=== PATIENT | female | born 1950 ===

== ENCOUNTER → 2023-02-13 | Outpatient (CLI) | payer MEDICARE ==
[2023-02-13 19:03] LABS: BASOPHILS ABSOLUTE AUTO 0.09 K/mm3 (0.00-0.23); BASOPHILS PERCENT AUTO 2 % (0-2); EOSINOPHILS PERCENT AUTO 2 % (0-6); Hematocrit 39.6 % (33.0-51.0); Hemoglobin 12.7 g/dL (11.5-16.0); IMMATURE GRAN ABSOLUTE AUTO 0.02 K/mm3 (0.00-0.10); IMMATURE GRAN PERCENT AUTO 0 % (0-1); LYMPHOCYTES ABSOLUTE AUTO 1.93 K/mm3 (0.84-5.20); LYMPHOCYTES PERCENT AUTO 32 % (21-46); MONOCYTES ABSOLUTE AUTO 0.41 K/mm3 (0.16-1.47); MONOCYTES PERCENT AUTO 7 % (4-13); Mean Corpuscular HGB 27.4 pg (26.0-34.0); Mean Corpuscular HGB Conc 32.1 g/dL (31.5-36.5); Mean Corpuscular Volume 86 fL (80-100); Mean Platelet Volume 9.8 fL (9.1-12.4); NEUTROPHILS ABSOLUTE AUTO 3.55 K/mm3 (1.96-9.15); NEUTROPHILS PERCENT AUTO 58 % (41-73); Platelet Count 367 K/mm3 (150-400); RDW Coefficient Variation 13.5 % (11.7-14.2); RDW Standard Deviation 41.8 fL (35.1-46.3); Red Blood Cell Count 4.63 M/mm3 (3.80-5.20)
[2023-02-13 19:37] LABS: Free Thyroxine 1.28 ng/dL (0.70-1.60)
[2023-02-13 19:44] LABS: Albumin, Blood 3.9 g/dL (3.4-5.0); Albumin/Globulin Ratio 1.2 (0.8-1.8); Bilirubin, Total 0.5 mg/dL (0.1-1.0); Bun/Creatinine Ratio 33.7 (12.0-20.0); Creatinine, Blood 0.62 mg/dL (0.40-1.00); Globulin, Blood 3.3 g/dL (2.2-4.0); Potassium, Blood 3.8 mmol/L (3.5-5.5); Thyroid Stimulating Hormone 3.13 uIU/mL (0.360-4.800); Total Protein, Blood 7.2 g/dL (6.4-8.2)
== END | disposition home or self-care (01) ==
LOC: LAB SHORT 15:50 → LAB 15:50
PROVIDERS: Nurse Practitioner Family
DX: E03.9 Hypothyroidism, unspecified (principal)
CPT/HCPCS: 80053; 84439; 84443; 85025

== ENCOUNTER 2025-03-02 10:27 | Inpatient (IN) | payer MEDICARE ==
[~2025-03-02] VITALS: Ht 160 cm; Wt 63.5 kg
[~2025-03-02 10:27] MED LIST: CENTRUM SILVER1 EAC2 PO; DIAZ5 PO; LEVSOD150 PO; MECL12.5 PO; SYNTHROID125 MC1 PO; TRAZ100 PO
[2025-03-02 11:39] LABS: BASOPHILS ABSOLUTE AUTO 0.09 K/mm3 (0.00-0.23); BASOPHILS PERCENT AUTO 1 % (0-2); EOSINOPHILS ABSOLUTE AUTO 0.02 K/mm3 (0.00-0.68); EOSINOPHILS PERCENT AUTO 0 % (0-6); Hematocrit 38.2 % (33.0-51.0); Hemoglobin 12.2 g/dL (11.5-16.0); IMMATURE GRAN ABSOLUTE AUTO 0.02 K/mm3 (0.00-0.10); IMMATURE GRAN PERCENT AUTO 0 % (0-1); LYMPHOCYTES ABSOLUTE AUTO 1.46 K/mm3 (0.84-5.20); LYMPHOCYTES PERCENT AUTO 18 % (21-46); MONOCYTES ABSOLUTE AUTO 0.48 K/mm3 (0.16-1.47); MONOCYTES PERCENT AUTO 6 % (4-13); Mean Corpuscular HGB Conc 31.9 g/dL (31.5-36.5); Mean Corpuscular Volume 88 fL (80-100); NEUTROPHILS ABSOLUTE AUTO 6.05 K/mm3 (1.96-9.15); NEUTROPHILS PERCENT AUTO 75 % (41-73); NRBC ABSOLUTE 0.00 K/mm3 (0.00-0.02); NRBC Auto 0.0 /100 WBC (0.0-0.2); Platelet Count 397 K/mm3 (150-400); RDW Coefficient Variation 14.5 % (11.7-14.2); RDW Standard Deviation 46.8 fL (35.1-46.3)
[2025-03-02 12:03] LABS: Alanine Aminotransfer (ALT/SGP 31.0 U/L (12-78); Albumin, Blood 4.1 g/dL (3.4-5.0); Albumin/Globulin Ratio 1.2 (0.8-1.8); Anion Gap 9.0 mmol/L (3-11); Aspartate Aminotrans (AST/SGOT 33.0 U/L (12-37); Bilirubin, Total 0.7 mg/dL (0.1-1.0); Blood Urea Nitrogen 20.0 mg/dL (8-24); CO2, Blood 29.0 mmol/L (21-32); Calcium, Blood 8.7 mg/dL (8.5-10.1); Chloride, Blood 104.0 mmol/L (98-108); Creatinine, Blood 0.66 mg/dL (0.40-1.00); Ethanol (Alcohol), Blood, Med 3.0 mg/dL; Globulin, Blood 3.3 g/dL (2.2-4.0); Glucose, Blood 125.0 mg/dL (70-99); Potassium, Blood 3.7 mmol/L (3.5-5.5); Sodium, Blood 138.0 mmol/L (136-145); Total Protein, Blood 7.4 g/dL (6.4-8.2)
[2025-03-02] MEDS ORDERED: NS 1,000 ML IV SCH ×2 (13:35→19:00)
[2025-03-02] MEDS ORDERED: Haloperidol Lactate Inj. 5 MG/ML Injection IV ONE ×4 (13:35→15:35)
[2025-03-02 13:47] LABS: Source, Urine Fem Cath
[2025-03-02 13:48] LABS: pH Blood Venous 7.42 (7.34-7.37)
[2025-03-02 13:58] LABS: Bilirubin, Urine Neg (Neg); Color, Urine Yellow (P-Yellow); Glucose Qualitative, Urine Neg (Neg); Ketones, Urine 4+ (Neg); Leukocyte Esterase, Urine Neg (Neg); Protein, Urine 2+ (Neg); Specific Gravity, Urine 1.030 (1.003-1.022); Urobilinogen, Urine NORM (Normal)
[2025-03-02 14:13] LABS: U Amphetamine Screen Not Detected; U Barbituate Screen Not Detected; U Benzodiazapine Screen DETECTED; U Buprenorphine Screen Not Detected; U Cannabinoids Screen Not Detected; U Cocaine Screen Not Detected; U Methadone Screen Not Detected; U Methamphetamine Screen Not Detected; U Opiates Screen Not Detected; U Oxycodone Screen Not Detected; U Phencyclidine Screen Not Detected
[2025-03-02 14:22] LABS: Red Blood Cells, Urine 0-2 /hpf (0-2); White Blood Cells, Urine 0-2 /hpf (0-5)
[2025-03-02] MEDS ORDERED: Diazepam 5 MG / ML 2ML SYR IV ONE (15:30)
[2025-03-02] MEDS ORDERED: Haloperidol Lactate Inj. 5 MG/ML Injection IV PRN (15:45)
[2025-03-02 16:15] LABS: Magnesium, Blood 2.0 mg/dL (1.6-2.4)
[2025-03-02 16:17] LABS: Phosphorus, Blood 3.1 mg/dL (2.5-4.9); Thyroid Stimulating Hormone 6.04 uIU/mL (0.360-4.800)
[2025-03-02 16:41] LABS: Osmolality, Serum 303.0 mos/KG (275-300)
[2025-03-02 17:55] VITALS: BP 133/64
[2025-03-02 19:44] VITALS: BP 111/58
--- NOTE | 2025-03-03 03:47 | NUR ---
PT ADMITTED FROM ED WITH AMS, A&O X4 CURRENTLY, VS WNL, PO INTAKE WNL, VOIDING WITHOUT C/O OF DISCOMFORT. PT STEADY ON FEET, AND LOW RISK FOR FALLS. PT REMAINS ON IVF, AND RA, SCD'S LEFT OFF D/T IRRITATION WITH EQUIPMENT. HOME MED REGIEME RESTARTED. WILL ASSESS LABS IN AM.
[2025-03-03 04:41] VITALS: BP 110/56
[2025-03-03] MEDS ORDERED: Levothyroxine Sodium 0.15 MG Tab PO SCH (06:00)
[2025-03-03 06:58] VITALS: BP 123/64
[2025-03-03 08:27] LABS: BASOPHILS ABSOLUTE AUTO 0.05 K/mm3 (0.00-0.23); BASOPHILS PERCENT AUTO 1 % (0-2); EOSINOPHILS ABSOLUTE AUTO 0.05 K/mm3 (0.00-0.68); EOSINOPHILS PERCENT AUTO 1 % (0-6); Hematocrit 34.3 % (33.0-51.0); Hemoglobin 10.9 g/dL (11.5-16.0); IMMATURE GRAN ABSOLUTE AUTO 0.00 K/mm3 (0.00-0.10); IMMATURE GRAN PERCENT AUTO 0 % (0-1); LYMPHOCYTES ABSOLUTE AUTO 1.30 K/mm3 (0.84-5.20); LYMPHOCYTES PERCENT AUTO 27 % (21-46); MONOCYTES ABSOLUTE AUTO 0.49 K/mm3 (0.16-1.47); MONOCYTES PERCENT AUTO 10 % (4-13); Mean Corpuscular HGB Conc 31.8 g/dL (31.5-36.5); Mean Corpuscular Volume 90 fL (80-100); NEUTROPHILS ABSOLUTE AUTO 2.91 K/mm3 (1.96-9.15); NEUTROPHILS PERCENT AUTO 61 % (41-73); NRBC ABSOLUTE 0.00 K/mm3 (0.00-0.02); NRBC Auto 0.0 /100 WBC (0.0-0.2); Platelet Count 323 K/mm3 (150-400); RDW Coefficient Variation 14.6 % (11.7-14.2); RDW Standard Deviation 48.0 fL (35.1-46.3)
[2025-03-03 08:46] LABS: Alanine Aminotransfer (ALT/SGP 27.0 U/L (12-78); Albumin, Blood 3.4 g/dL (3.4-5.0); Albumin/Globulin Ratio 1.1 (0.8-1.8); Anion Gap 5.0 mmol/L (3-11); Aspartate Aminotrans (AST/SGOT 30.0 U/L (12-37); Bilirubin, Total 0.8 mg/dL (0.1-1.0); Blood Urea Nitrogen 16.0 mg/dL (8-24); CO2, Blood 30.0 mmol/L (21-32); Calcium, Blood 8.0 mg/dL (8.5-10.1); Chloride, Blood 109.0 mmol/L (98-108); Creatinine, Blood 0.61 mg/dL (0.40-1.00); Globulin, Blood 3.0 g/dL (2.2-4.0); Glucose, Blood 89.0 mg/dL (70-99); Potassium, Blood 3.4 mmol/L (3.5-5.5); Sodium, Blood 141.0 mmol/L (136-145); Total Protein, Blood 6.4 g/dL (6.4-8.2)
[2025-03-03] MEDS ORDERED: Enoxaparin 40 MG/0.4 ML SYR SC SCH (09:00)
[2025-03-03] MEDS ORDERED: NS 1,000 ML IV SCH (09:40)
[2025-03-03] MEDS ORDERED: Potassium Chloride 10 Meq Tablet SA PO ONE (12:30)
[2025-03-03] MEDS ORDERED: Haloperidol Lactate Inj. 5 MG/ML Injection IV PRN (13:30)
[2025-03-03] MEDS ORDERED: Potassium Chl 10MEQ/Water100ML 100 ML IV ONE (13:30)
--- NOTE | 2025-03-03 17:12 | NUR ---
PATIENT IN THE AM WAS HUNCHED OVER IN BED ROCKING. PATIENT WOULD REPEAT CERTAIN WORDS THAT WERE SPOKEN IN THE ROOM, WHEN ASKED TO TAKE MEDICATION THE PATIENT STATED NO SEVERAL TIMES. SPOUSE AND SISTER IN AND OUT OF ROOM TODAY. PATIENT ABLE TO RELAX AND REST. DR PAT EVALUATED PATIENT AND PLACED ORDERS FOR MEDICATION TO HELP PATIENT SLEEP. PATIENT MORE AWAKE AFTER NAP AND ABLE TO AMBULATE TO BATHROOM AND DO SELF CARE. CALL LIGHT WITHIN REACH AND FAMILY ABLE TO ASK FOR ASSISTANCE.
[2025-03-03 19:41] VITALS: BP 181/78
[2025-03-04 00:12] VITALS: BP 155/81
--- NOTE | 2025-03-04 04:20 | NUR ---
PT A&OO X1, DELUSIONAL THROUGHOUT NIGHT, SLEPT SOME BETWEEN [id number], PT AGITATED EARLY IN SHIFT, GIVEN HALDOL IVP, SISTER WAS ABLE TO GIVE PO MEDS AT HS. B/P ELEVATED WHEN AGITATED, DECREASED WHEN ASLEEP. PT AWOKE AT 0415 AND WAS UP WITH ASSIST TO BR WHERE SHE VOIDED. NO C/O PAIN, VERY CONFUSED AND NEEDED SIMPLE INSTRUCTIONS TO COMPLETE TASK. CONTINUES ON IVF, UNSURE WHAT PLAN IS FOR D/C TO HOME WITH .
[2025-03-04 05:06] VITALS: BP 156/71
[2025-03-04] MEDS ORDERED: LORazepam 2 MG/ML 1ML Injection IV PRN (08:15)
[2025-03-04 15:23] VITALS: BP 156/74
--- NOTE | 2025-03-04 16:55 | NUR ---
SHIFT SUMMARY: A&Ox3-4 THIS SHIFT. PLEASANT AND COOPERATIVE WITH CARE PROVIDED BY STAFF. SPOUSE IN AND OUT OF ROOM VISITING PT THROUGHOUT DAY. PT UP OUT OF BED THIS EVENING WITH A 2P ASSIST TO THE BSC. MEDICATED PER EMAR. BED IN THE LOWEST POSITION. CALL LT WITHIN REACH.
[2025-03-04 19:13] VITALS: BP 138/63
[2025-03-04 23:44] VITALS: BP 122/66
--- NOTE | 2025-03-05 03:35 | NUR ---
PT TRANSFERED TO THE FLOOR DURING SHIFT FROM ICU. PATIENT ALERT TO SELF. PATIENT DOES NOT SPEAK [place], CONSTRUCTION IRONWORKER HELPER PHONE AT BEDSIDE; SON ALSO AT BEDSIDE. PATIENT WAS ON ROOM AIR BUT HAD TWO EPISODES WHILE HE WAS SLEEPING WHERE HIS HR WENT UP TO 120-130'S AND OXYGEN DROPPED TO THE 77%. PATIENT ALSO HAD SOME LOW BLOOD PRESSURES (SEE CHART). DR. LANG WAS NOTIFIED OF BLOOD PRESSURES,HEART AND OXYGEN. PATIENT WAS PUT ON 2 L NC-PATIENT NOW SATING WELL, 93%-97%, AND WAS STARTED ON 5 MG OF MIDODRINE. OCHOA WAS REMOVED PER PROTOCOL. PATIENT NPO. BED ALARM IS ON, BED IN LOW POSITION, WHEELS LOCKED- CALL LIGHT WITHIN REACH.
[2025-03-05 04:12] VITALS: BP 147/71
--- NOTE | 2025-03-05 04:39 | NUR ---
PATIENT WAS ALERT AND ORIENTED 2-3. ABLE TO ANSWER MOST QUESTION BUT PRESENTED WITH INTERMITTENT CONFUSION. PATIENT ON TELE. UP TO BATH ROOM WITH 2 ASSIST AND WALKER. MEDICATION PER EMAR. PATIENT ON IV FLUIDS. BED IS IN LOW POSITION WITH WHEEL LOCKES. BED ALARM ON, CALL LIGHT WITHIN REACH
[2025-03-05 07:22] VITALS: BP 196/97
[2025-03-05 12:06] VITALS: BP 175/71
[2025-03-05 16:39] VITALS: BP 132/65
--- NOTE | 2025-03-05 18:27 | NUR ---
Pt is in bed brushing hair and wants to wait to eat dinner until spouse comes back. Rounded and has no needs at this time. Cleaned room and brought fresh ice water. The bed alarm is on and call light within reach.
[2025-03-05 19:13] VITALS: BP 149/78
--- NOTE | 2025-03-05 19:40 | NUR ---
SHIFT SUMMARY PATIENT ALERT AND INTERACTIVE. PATIENT HAVING PERIODS OF RIGIDITY AND REPETATIVE SPEAKING. PATIENT ABLE TO WALK IN THE HALLS WITH AND WALKER WITH SHUFFLING GAIT. WHEN ABLE TO INTERACT, PATIENT EATING AND DRINKING. PATIENT CONTINUES TO BE RELUCTANT TO TAKE MEDICATIONS. IV PULLED OUT DURING EPISODE OF DELERIUM.
[2025-03-06 02:11] VITALS: BP 153/59
--- NOTE | 2025-03-06 03:32 | NUR ---
BOX SPRING UPHOLSTERER SUMMARY VSS. DX ACUTE METABOLIC ENCEPHALOPATHY. MOOD AND BEHAVIOR ALTERNATING, WITH SOMETIMES CHEERFUL AND COMPLIANAT, OTHER TIMES NOT. OCCASIONAL POUNDING ON BEDSIDE TABLE FOR ATTENTION. MED TELE ONE RUN OF V TACH WHEN SHE WAS ON BEDSIDE COMMODE, OTHERWISE, NO NOTED DISRUPTION. TOLERATING MEDS WITH ENCOURAGEMENT. HAS BEEN RESTING WITH FEW INTERRUPIONS SINCE VOIDING EARLIER. CALL LIGHT IN REACH, RAILS UP X 2 AND BED IN LOW POSITION FOR SAFETY. WILL CONTINUE TO MONITOR.
[2025-03-06 07:31] VITALS: BP 142/71
--- NOTE | 2025-03-06 15:22 | NUR ---
SHIFT SUMMARY PATIENT ABLE TO WALK WITH IN HALLWAY. ORIENTED X3-4 MOST OF SHIFT. ACCEPTING OF MEDICATIONS. EATING AND DRINKING WELL. VOIDING ADEQUATELY, NO BM. TELE IN PLACE, NO ALERT CALLS AT TIME OF NOTE. ABLE TO MAKE NEEDS KNOWN. CALL LIGHT IN REACH.
[2025-03-06 16:10] VITALS: BP 146/71
[2025-03-06 19:43] VITALS: BP 156/89
[2025-03-07 00:02] VITALS: BP 140/71
--- NOTE | 2025-03-07 03:21 | NUR ---
continued to pull off tele leads, refused to allow leads kept on. Med tele was sinus rhythm in the 80's with no noted anomalies in the past 12 hrs or so. MD notified and tele discontinued.
--- NOTE | 2025-03-07 03:23 | NUR ---
CASING BUILDER SUMMARY VSS. SOME INTERMITTENT MOOD SWINGS. WAS AT BEDSIDE UNTIL HS AND WENT HOME. PT SEEMED ANXIOUS AND REQUESTED STAFF TO CALL BACK IN, AND HE CAME IN TO SEE HER, THEN LEFT SHE WENT BACK TO SLEEP. SOON AFTEWARDS, PT BECAME ANXIOUS, RESTLESS AND STARTED TO PULL OFF TELE LEADS AND CONTINUED TO DO SO WHEN STAFF REPLACED THEM. REFUSED TO COMPLY WITH TREATMENT. CALLING OUT AND MUMBLING. CHARGE NURSE NOTIFIED, WAS NOTIFIFED AND SINCE PT HAD BEEN SR IN THE 'S, TELE WAS DC'D. RAILS UP X 3, CALL LIGHT IN REACH, BED IN LOW POSITION AND BED ALARM ON FOR SAFETY. WILL CONTINUE TO MONITOR.
--- NOTE | 2025-03-07 06:45 | NUR ---
NOTIFIED OF PT BEHAVIOR. PT REFUSING TO ALLOW VITAL SIGNS, MEDS, ETC. CAME IN TO SIT WITH PT. EVENTUALLY PT ACCEPTED AM MEDS. SITTING QUIETLY WITH . CALL LIGHT IN REACH.
--- NOTE | 2025-03-07 06:47 | NUR ---
PT TOOK ABOUT 2/3 OF LEVOTHRYOXINE PILL 150 MCG (0.15 MG).
[2025-03-07 08:16] VITALS: BP 140/68
--- NOTE | 2025-03-07 11:11 | NUR ---
CONTACTED DR BURDICK REGARDING PATIENT CHANGE. PATIENT PRESENTING WITH ECHOLALIA, HOLDING ONE POSITION IN BED FOR LONG PERIODS, NOT RECOGNIZING STAFF. WAS A/O X4 THIS AM UNTIL AFTER BREAKFAST. ATIVAN PO GIVEN WITH CONSIDERABLE EFFORT, IV NOT AVAILABLE. DR BURDICK AND NURSE SPOKE WITH JALEN REGARDING MRI, AGREED TO TEST AND TO GIVING IV MEDICATIONS FOR CLAUSTROPHOBIA.
[2025-03-07] MEDS ORDERED: Diazepam 5 MG / ML 2ML SYR IV PRN (12:45)
[2025-03-07 13:18] LABS: BASOPHILS ABSOLUTE AUTO 0.05 K/mm3 (0.00-0.23); BASOPHILS PERCENT AUTO 1 % (0-2); EOSINOPHILS ABSOLUTE AUTO 0.01 K/mm3 (0.00-0.68); EOSINOPHILS PERCENT AUTO 0 % (0-6); Hematocrit 33.7 % (33.0-51.0); Hemoglobin 11.0 g/dL (11.5-16.0); IMMATURE GRAN ABSOLUTE AUTO 0.03 K/mm3 (0.00-0.10); IMMATURE GRAN PERCENT AUTO 0 % (0-1); LYMPHOCYTES ABSOLUTE AUTO 1.20 K/mm3 (0.84-5.20); LYMPHOCYTES PERCENT AUTO 15 % (21-46); MONOCYTES ABSOLUTE AUTO 0.76 K/mm3 (0.16-1.47); MONOCYTES PERCENT AUTO 9 % (4-13); Mean Corpuscular HGB Conc 32.6 g/dL (31.5-36.5); Mean Corpuscular Volume 87 fL (80-100); NEUTROPHILS ABSOLUTE AUTO 6.22 K/mm3 (1.96-9.15); NEUTROPHILS PERCENT AUTO 75 % (41-73); NRBC ABSOLUTE 0.00 K/mm3 (0.00-0.02); NRBC Auto 0.0 /100 WBC (0.0-0.2); Platelet Count 292 K/mm3 (150-400); RDW Coefficient Variation 14.1 % (11.7-14.2); RDW Standard Deviation 43.8 fL (35.1-46.3)
[2025-03-07 13:42] LABS: Magnesium, Blood 1.5 mg/dL (1.6-2.4)
[2025-03-07 13:48] LABS: Alanine Aminotransfer (ALT/SGP 30.0 U/L (12-78); Albumin, Blood 3.3 g/dL (3.4-5.0); Albumin/Globulin Ratio 1.2 (0.8-1.8); Anion Gap 10.0 mmol/L (3-11); Aspartate Aminotrans (AST/SGOT 42.0 U/L (12-37); Bilirubin, Total 0.9 mg/dL (0.1-1.0); Blood Urea Nitrogen 5.0 mg/dL (8-24); CO2, Blood 32.0 mmol/L (21-32); Calcium, Blood 8.6 mg/dL (8.5-10.1); Chloride, Blood 99.0 mmol/L (98-108); Creatinine, Blood 0.57 mg/dL (0.40-1.00); Globulin, Blood 2.7 g/dL (2.2-4.0); Glucose, Blood 100.0 mg/dL (70-99); Phosphorus, Blood 2.5 mg/dL (2.5-4.9); Potassium, Blood 2.3 mmol/L (3.5-5.5); Sodium, Blood 139.0 mmol/L (136-145); Total Protein, Blood 6.0 g/dL (6.4-8.2)
--- NOTE | 2025-03-07 14:02 | NUR ---
CRITICAL NOTIFICATION K 2.3, DR BURDICK MADE AWARE, STATED HE WILL PLACE ORDERS
[2025-03-07] MEDS ORDERED: Magnesium Sulf 2 GM/Water 50ML 50 ML IV STA (14:05)
[2025-03-07 16:41] VITALS: BP 153/76
--- NOTE | 2025-03-07 17:11 | NUR ---
SHIFT SUMMARY PATIENT A/O X3-4 MOST OF SHIFT, A FEW HOURS OF CONFUSION/PSYCHOTIC BEHAVIORS, SEE PREVIOUS NOTE. ALLOWED MRI. 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 REPLACING MAG AND K, CRITICAL VALUE REPORTED TO DR BURDICK. VISITING IN ROOM MOST OF SHIFT, APPEARS SUPPORTIVE. CALL LIGHT IN REACH, BED ALARMED.
[2025-03-07] MEDS ORDERED: Potassium Chl 20MEQ/Water100ML 100 ML IV ONE (18:00)
[2025-03-07] MEDS ORDERED: NS 250 ML IV PRN (21:00)
--- NOTE | 2025-03-08 03:22 | NUR ---
GAS BRAZER SUMMARY PT'S VSS, EXCEPT ELEVATED BP. PER EMAR, PT REFUSED AMLODIPINE DURING AM SHIFT. PT CONTINUES TO BE CONFUSED, ANXIOUS, AND STUTTERING. PT WILL SAY SAME PHRASES OVER AND OVER TO VOICE HER NEEDS. PT'S HAS BEEN AT BEDSIDE THROUGHOUT THE SHIFT AND HAS BEEN EFFECTIVELY HELPING CALM PT DOWN. PT GETS MORE ANXIOUS AND ASKS FOR PT'S SOON HE LEAVES THE BEDSIDE. PT HAD CRITICAL POTASSIUM LEVEL OF 2.3. PT GIVEN POTASSIUM. SEE EMAR FOR DETAILS. PT ALSO RECEIVED ATIVAN AND MELATONIN. PT HAS BEEN RESTING QUIETLY SINCE SENIOR SYSTEMS ENGINEER. CHEST RISE AND RESPIRATIONS NOTED. BED RAILS UP X 2, BED WHEEL LOCKED, BED IN LOWEST POSITION, PERSONAL BELONGINGS & CALL LIGHT WITHIN REACH FOR SAFETY.
[2025-03-08 08:03] VITALS: BP 140/74
[2025-03-08 11:15] LABS: BASOPHILS ABSOLUTE AUTO 0.08 K/mm3 (0.00-0.23); BASOPHILS PERCENT AUTO 1 % (0-2); EOSINOPHILS ABSOLUTE AUTO 0.09 K/mm3 (0.00-0.68); EOSINOPHILS PERCENT AUTO 2 % (0-6); Hematocrit 35.8 % (33.0-51.0); Hemoglobin 11.7 g/dL (11.5-16.0); IMMATURE GRAN ABSOLUTE AUTO 0.02 K/mm3 (0.00-0.10); IMMATURE GRAN PERCENT AUTO 0 % (0-1); LYMPHOCYTES ABSOLUTE AUTO 1.29 K/mm3 (0.84-5.20); LYMPHOCYTES PERCENT AUTO 23 % (21-46); MONOCYTES ABSOLUTE AUTO 0.51 K/mm3 (0.16-1.47); MONOCYTES PERCENT AUTO 9 % (4-13); Mean Corpuscular HGB Conc 32.7 g/dL (31.5-36.5); Mean Corpuscular Volume 86 fL (80-100); NEUTROPHILS ABSOLUTE AUTO 3.54 K/mm3 (1.96-9.15); NEUTROPHILS PERCENT AUTO 64 % (41-73); NRBC ABSOLUTE 0.00 K/mm3 (0.00-0.02); NRBC Auto 0.0 /100 WBC (0.0-0.2); Platelet Count 310 K/mm3 (150-400); RDW Coefficient Variation 14.4 % (11.7-14.2); RDW Standard Deviation 45.1 fL (35.1-46.3)
[2025-03-08 11:46] LABS: Alanine Aminotransfer (ALT/SGP 37.0 U/L (12-78); Albumin, Blood 3.8 g/dL (3.4-5.0); Albumin/Globulin Ratio 1.4 (0.8-1.8); Anion Gap 9.0 mmol/L (3-11); Aspartate Aminotrans (AST/SGOT 52.0 U/L (12-37); Bilirubin, Total 0.9 mg/dL (0.1-1.0); Blood Urea Nitrogen 6.0 mg/dL (8-24); CO2, Blood 31.0 mmol/L (21-32); Calcium, Blood 8.6 mg/dL (8.5-10.1); Chloride, Blood 102.0 mmol/L (98-108); Creatinine, Blood 0.55 mg/dL (0.40-1.00); Globulin, Blood 2.8 g/dL (2.2-4.0); Glucose, Blood 118.0 mg/dL (70-99); Magnesium, Blood 2.1 mg/dL (1.6-2.4); Phosphorus, Blood 3.6 mg/dL (2.5-4.9); Potassium, Blood 2.9 mmol/L (3.5-5.5); Sodium, Blood 139.0 mmol/L (136-145); Total Protein, Blood 6.6 g/dL (6.4-8.2)
[2025-03-08 17:47] VITALS: BP 146/92
--- NOTE | 2025-03-08 18:44 | NUR ---
PT QUITE PLEASANT TODAY. MOSTLY A/O X3 UNTIL EARLY AFTERNOOON, SOME SLOWNESS REPORTED BY . APPEARS TO BE RESOLVED SHORTLY. NO OTHER NEW CONCERNS NOTED. STATES IMPROVED OVERALL TODAY. DID AMBULATE TO BACK [place] TODAY. HUSB STATES WILL BE TAKING HER SHORTLY AGAIN. NO OTHER CONCERNE NOTED. BED IN LOW POSITION, CALL LITE IN REACH, CALLS APPROP
[2025-03-08 19:40] VITALS: BP 130/70
[2025-03-09 03:48] VITALS: BP 156/74
--- NOTE | 2025-03-09 03:51 | NUR ---
SHIFT SUMMARY PT ADMITTED FOR ACUTE METABOLIC ENCEPHALOPATHY. A & O X 3 WITH OCCASSIONAL CONFUSION AND FORGETFULNESS. ABLE TO MAKE ALL NEEDS KNOWN. DENIES PAIN OR SOB. LUNGS DIMINISHED AT BASES. PT WAS UP AND WALKING WITH GAIT BELT AND 1 PERSON ASSIST WITH HER . SLEEPING IN BED AT LOWEST POSTION WITH RAILS X2 UP AND CALL LIGHT WITHIN REACH.
[2025-03-09 05:55] LABS: BASOPHILS ABSOLUTE AUTO 0.05 K/mm3 (0.00-0.23); BASOPHILS PERCENT AUTO 1 % (0-2); EOSINOPHILS ABSOLUTE AUTO 0.14 K/mm3 (0.00-0.68); EOSINOPHILS PERCENT AUTO 3 % (0-6); Hematocrit 32.7 % (33.0-51.0); Hemoglobin 10.6 g/dL (11.5-16.0); IMMATURE GRAN ABSOLUTE AUTO 0.02 K/mm3 (0.00-0.10); IMMATURE GRAN PERCENT AUTO 1 % (0-1); LYMPHOCYTES ABSOLUTE AUTO 1.31 K/mm3 (0.84-5.20); LYMPHOCYTES PERCENT AUTO 30 % (21-46); MONOCYTES ABSOLUTE AUTO 0.43 K/mm3 (0.16-1.47); MONOCYTES PERCENT AUTO 10 % (4-13); Mean Corpuscular HGB Conc 32.4 g/dL (31.5-36.5); Mean Corpuscular Volume 86 fL (80-100); NEUTROPHILS ABSOLUTE AUTO 2.48 K/mm3 (1.96-9.15); NEUTROPHILS PERCENT AUTO 56 % (41-73); NRBC ABSOLUTE 0.00 K/mm3 (0.00-0.02); NRBC Auto 0.0 /100 WBC (0.0-0.2); Platelet Count 286 K/mm3 (150-400); RDW Coefficient Variation 14.5 % (11.7-14.2); RDW Standard Deviation 46.0 fL (35.1-46.3)
[2025-03-09 06:36] LABS: Anion Gap 9.0 mmol/L (3-11); Blood Urea Nitrogen 6.0 mg/dL (8-24); CO2, Blood 31.0 mmol/L (21-32); Calcium, Blood 8.1 mg/dL (8.5-10.1); Chloride, Blood 104.0 mmol/L (98-108); Creatinine, Blood 0.54 mg/dL (0.40-1.00); Glucose, Blood 95.0 mg/dL (70-99); Potassium, Blood 3.1 mmol/L (3.5-5.5); Sodium, Blood 141.0 mmol/L (136-145)
[2025-03-09 08:09] VITALS: BP 160/74
[2025-03-09 16:06] VITALS: BP 148/82
--- NOTE | 2025-03-09 16:17 | NUR ---
SHIFT SUMMARY PT ATTEMPTED TO REFUSE CARE THIS AM, BUT WAS ABLE TO BE ENCOURAGED TO GET OOB. AFTER THIS, PT WOKE UP MORE AND WAS MORE ALERT COMPARED TO THE START OF SHIFT. PT WAS RESISTANT, BUT AGREEABLE TO SHOWER TODAY. PT HAD A COG EVAL COMPLETED TODAY WITH OCCUPATIONAL THERAPY. SCORE OF 23/30. NO OTHER ACUTE CHANGES IN ASSESSMENT AT THIS TIME. PT PLEASANT & COOPERATIVE THIS SHIFT. AGREEABLE WITH CARE AFTER ENCOURAGMENT. PT AMBULATING THE HALLWAYS WITH HER . VS REVIEWED. PT UP IN CHAIR, VISITING WITH . CALL LIGHT IN REACH. BED/CHAIR ALARMS IN USE.
[2025-03-09 19:54] VITALS: BP 155/75
--- NOTE | 2025-03-10 03:52 | NUR ---
SHIFT SUMMARY PT ALERT ORIENTED HAS BEEN SLEEPING MOST OF NIGHT WITH NO BEHAVIOR EPISODES. THERES A POSSIBILITY THAT SHE MAY DC TO HOME TODAY. VSS ON RA SATTING AT 97%. SEEMS TO BE ALOT MORE ALERT WITH LESS CONFUSION THIS SHIFT. LABS TO BE DONE THIS AM. SHE AMBULATES IN ROOM WITH 1 PERSON SBA. HER WAS HERE WITH HER AT START OF SHIFT. RESTING IN BED AT THIS TIME WITH CALL LIGHT IN REACH
[2025-03-10 05:20] VITALS: BP 149/75
[2025-03-10 06:16] LABS: Anion Gap 7.0 mmol/L (3-11); Blood Urea Nitrogen 6.0 mg/dL (8-24); CO2, Blood 33.0 mmol/L (21-32); Calcium, Blood 8.5 mg/dL (8.5-10.1); Chloride, Blood 101.0 mmol/L (98-108); Creatinine, Blood 0.52 mg/dL (0.40-1.00); Glucose, Blood 94.0 mg/dL (70-99); Potassium, Blood 3.1 mmol/L (3.5-5.5); Sodium, Blood 138.0 mmol/L (136-145)
[2025-03-10 07:25] VITALS: BP 126/77
[2025-03-10] MEDS ORDERED: Potassium Chl 20MEQ/Water100ML 100 ML IV STA (07:32)
[2025-03-10] MEDS ORDERED: Magnesium Sulf 2 GM/Water 50ML 50 ML IV ONE (11:10)
--- NOTE | 2025-03-10 12:30 | NUR ---
PT AND GIVEN D/C INSTRUCTIONS, VERBALIZED UNDERSTANDING. BELONGINGS SENT WITH PT. PT LEFT VIA CAR TRANSPORT TO HOME WITH .
[2025-03-10] MEDS ORDERED: AMLO5 PO (12:45)
[2025-03-10] MEDS ORDERED: LORA2 PO (12:46)
[2025-03-10] MEDS ORDERED: MAGCHL64ER PO (12:47)
== END 2025-03-10 13:16 | disposition home or self-care (01) | DRG 72 ==
LOC: ER 10:27 → MEDS 10:28
PROVIDERS: Student in an Organized Health Care Education/Training Program; ADMIT Family Medicine
DX: G93.41 Metabolic encephalopathy (principal); E86.0 Dehydration; R73.9 Hyperglycemia, unspecified; I10 Essential (primary) hypertension; E03.9 Hypothyroidism, unspecified; G31.84 Mild cognitive impairment of uncertain or unknown etiology; E87.6 Hypokalemia; E83.42 Hypomagnesemia; Z79.890 Hormone replacement therapy
CPT/HCPCS: 36415; 70553; 80048; 80053; 80320; 81001; 82140; 82533; 82803; 83036; 83735; 83930; 84100; 84439; 84443; 84481; 85025; 87086; 93005; 93010; 96361; 96374; 96375; 96376; 97165; 99285-25; A9270; A9579; G0378; J1630; J1650; J3360; J3475; J3480; J7030; J7050

== ENCOUNTER → 2025-03-17 | Outpatient (CLI) | payer MEDICARE ==
[~2025-03-17] MED LIST changes: +AMLO5 PO; +LORA2 PO; +MAGCHL64ER PO
[2025-03-17 18:41] LABS: Thyroid Stimulating Hormone 0.088 uIU/mL (0.360-4.800)
== END | disposition home or self-care (01) ==
LOC: LAB SHORT 15:58 → LAB 15:58
PROVIDERS: Nurse Practitioner Family
DX: E03.9 Hypothyroidism, unspecified (principal); R30.0 Dysuria; Z87.440 Personal history of urinary (tract) infections
CPT/HCPCS: 84439; 84443; 84481; 87086